=== PATIENT | female | born 1955 | race Caucasian/White ===

== ENCOUNTER 2023-08-27 10:53 | Inpatient (IN) | payer MEDICARE, BC ==
[~2023-08-27] VITALS: Ht 165.1 cm; Wt 40.1 kg
[2023-08-27] VITALS (346 sets, daily range): BP systolic 128–160; BP diastolic 66–106; PULSE 82–187; TEMP 97.4–102.7; O2SAT 85–100
[~2023-08-27 10:53] MED LIST: ALTACE 1.25MG1.25 MG; DRAMAMINE LESS25 MG PO; RIOMET500 MG/5 M; TOPROL XL 25MG25 MG PO; TRICOR145 MG PO; ZOFRAN ODT4 MG PO
[2023-08-27 12:28] LABS: MEAN CELL VOLUME 89 fl (80.0-100.0); MEAN CORPUSCULAR HGB CONC 31 g/dl (33.0-37.0); MEAN PLATELET VOLUME 9.4 fl (7.4-10.4); PLATELET COUNT 148 K/mm3 (130-400); RED BLOOD COUNT 3.38 M/mm3 (4.10-5.30); REDCELL DISTRIBUTION WIDTH-CV 17.4 % (11.5-14.5)
[2023-08-27 12:31] LABS: HEMATOCRIT 29.9 % (37.0-47.0); HEMOGLOBIN 9.2 g/dl (12.5-16.0); MEAN CORPUSCULAR HEMOGLOBIN 27 pg (27-31)
[2023-08-27 12:43] LABS: ALANINE AMINOTRANSFERASE 15 U/L (0-55); ALBUMIN 2.1 gm/dL (3.4-4.8); ALKALINE PHOSPHATASE 95 U/L (40-150); ANION GAP 15 mmol/L (7-16); AST,SGOT 22 U/L (5-34); BILIRUBIN,TOTAL 0.7 mg/dL (0.2-1.2); BLOOD UREA NITROGEN 25 mg/dL (10-20); CALCIUM 8.8 mg/dL (8.4-10.2); CARBON DIOXIDE 19 mmol/L (23-31); CHLORIDE 97 mmol/L (98-107); CREATININE, serum 1.07 mg/dL (0.57-1.11); GLUCOSE 223 mg/dL (70-99); POTASSIUM 3.9 mmol/L (3.5-4.5); SODIUM 131 mmol/L (136-145); TOTAL PROTEIN 5.9 gm/dL (6.2-8.1)
[2023-08-27 12:46] LABS: LIPASE < 4 U/L (8-78)
[2023-08-27 12:53] LABS: INR 1.7 (0.8-3.0); PROTHROMBIN TIME 18.4 SECONDS (9.7-12.8)
[2023-08-27 13:10] LABS: ANISOCYTOSIS 1+; BAND 43 % (0-10); LYMPHOCYTE 17 % (20.0-51.0); NEUTROPHILS 33 % (42.0-75.2); PLATELET ESTIMATE NORMAL (NORMAL)
[2023-08-27] MEDS ORDERED: CALCIUM CITRAT950 MG PO (15:09)
[2023-08-27] MEDS ORDERED: ZYRTEC 10MG10 MG PO (15:10)
[2023-08-27] MEDS ORDERED: GLUCOPHAGE500 MG/TAB PO (15:11)
[2023-08-27] MEDS ORDERED: TAGAMET300 MG PO (15:11)
[2023-08-27] MEDS ORDERED: ALTACE 5MG5 MG PO (15:14)
[2023-08-27] MEDS ORDERED: LOFIBRA134 MG PO (15:14)
[2023-08-27] MEDS ORDERED: PRAVACHOL 20MG20 MG PO (15:15)
[2023-08-27] MEDS ORDERED: DASETTA PO (15:15)
[2023-08-27] MEDS ORDERED: MAG-OX 400400 MG/TAB PO (15:16)
[2023-08-27] MEDS ORDERED: PERCOCET 325 MG1 TAB PO (15:16)
[2023-08-27] MEDS ORDERED: REGLAN 10MG10 MG/TAB PO (15:16)
[2023-08-27] MEDS ORDERED: ZOFRAN ODT8 MG PO (15:18)
[2023-08-27] MEDS ORDERED: FENTANYL 50MCG TD (15:20)
[2023-08-27] MEDS ORDERED: INSULIN AS100 UNIT/3 SQ (15:21)
[2023-08-27] MEDS ORDERED: GEMCITABINE IV (15:23)
[2023-08-27] MEDS ORDERED: ABRAXANE100 MG IV (15:25)
[2023-08-27 17:29] LABS: HEMOGLOBIN 10.4 g/dl (12.5-16.0); MEAN CELL VOLUME 88 fl (80.0-100.0); MEAN CORPUSCULAR HEMOGLOBIN 27 pg (27-31); MEAN CORPUSCULAR HGB CONC 31 g/dl (33.0-37.0); MEAN PLATELET VOLUME 10.2 fl (7.4-10.4); PLATELET COUNT 154 K/mm3 (130-400); RED BLOOD COUNT 3.83 M/mm3 (4.10-5.30); REDCELL DISTRIBUTION WIDTH-CV 17.6 % (11.5-14.5)
[2023-08-27 17:33] LABS: HEMATOCRIT 33.6 % (37.0-47.0)
[2023-08-27 17:38] LABS: PARTIAL THROMBOPLASTIN TIME 34.5 SECONDS (26.0-37.0)
--- NOTE | 2023-08-27 17:50 | NUR ---
PT ARRIVED TO ICU RM 1 AT 1750; WAS TRANSFERED FROM MEDICAL FLOOR TO [facility] BY THIS NURSE AFTER RESPONDING TO CAT CALL FOR PT'S HEART RATE BEING IN THE 180'S. UPON ARRIVAL TO ICU PT'S HEART RATE REMAINED IN 180'S; AFIB RVR. SPO2 IN MID 80'S DESPITE BEING ON 15L OXYMASK. RT MET PT IN ROOM AND PLACED PT ON AIRVO SHORTLY AFTER ARRIVAL. SP02 IMPROVED TO MID 90'S WITH AIRVO 60L AND 65%. PT'S BP 160'S/90'S. TEMP 102.7. PT LETHARGIC AND UNABLE TO STAY AWAKE TO ANSWER QUESTIONS. DR. LORENZO NOTIFIED OF PT'S CHANGE IN CONDITION AT 1738;ORDER WAS RECEIVED TO TRANSFER TO ICU. DR. ENCARNACION CALLED AT 1810 AND NOTIFED THAT CARDIZEM GTT AT 5MG/HR WAS NOT EFFECTIVE FOR HEART RATE. NEW ORDERS RECEIVED TO INCREASE CARDIZEM TO 15MG/HR, AMIO BOLUS, AND AMIO GTT. ILA CARMONA ARRIVED TO ASSESS PT AT 1800. PT'S PRESENT AT TIME OF TRANSFER TO ICU AND WAS UPDATED BY ILA CARMONA.
--- NOTE | 2023-08-27 18:15 | NUR ---
DOUBLER OPERATOR WAS SETTLING PATIENT TO ROOM UPON ADMISSION, TRYING TO DO PHYSICAL PT ASSESSMENT AND INITIATE HEPARIN AND CARDIZEM DRIPS. TELE CALLED CHARGE NURSE ROBERT WHO WAS IN THE ROOM TRYING TO GET A PERIPHERAL IV FOR DOUBLER OPERATOR; DOUBLER OPERATOR ANSWERED PHONE AND TELE SAID THAT PT HR WAS IN 180'S. DOUBLER OPERATOR TOLD TELE THAT PT JUST ARRIVED AND DOUBLER OPERATOR WAS WORKING ON SETTING UP DRIPS. ICU NURSES CAME UP A FEW MINUTES LATER DUE TO SUSTAINED HR IN 180'S TO ASSIST. DR. LORENZO CALLED BY CATERING OPERATIONS MANAGER AND PT MOVED TO ICU. DOUBLER OPERATOR GAVE REPORT TO ICU NURSE. DOUBLER OPERATOR WAS UNABLE TO COMPLETE PT PHYSICAL ASSESSMENT DUE TO PT DECLINE AT THE TIME
[2023-08-27 18:52] LABS: ARTERIAL BLD GAS TCO2 CT 19.2; ARTERIAL BLOOD GAS BASE EXCESS -5.9 (-2-2); ARTERIAL BLOOD GAS HCO3 18.3 meq/L (22-26); ARTERIAL BLOOD GAS PCO2 30.8 mmHg (35-45); ARTERIAL BLOOD GAS PO2 91.2 mmHg (80-100); ARTERIAL BLOOD GAS pH 7.39 (7.35-7.45)
[2023-08-27 19:07] LABS: MEAN CELL VOLUME 88 fl (80.0-100.0); MEAN CORPUSCULAR HGB CONC 31 g/dl (33.0-37.0); MEAN PLATELET VOLUME 9.4 fl (7.4-10.4); PLATELET COUNT 122 K/mm3 (130-400); RED BLOOD COUNT 3.15 M/mm3 (4.10-5.30); REDCELL DISTRIBUTION WIDTH-CV 17.5 % (11.5-14.5)
[2023-08-27 19:15] LABS: HEMATOCRIT 27.7 % (37.0-47.0); HEMOGLOBIN 8.7 g/dl (12.5-16.0); MEAN CORPUSCULAR HEMOGLOBIN 28 pg (27-31)
[2023-08-27 19:31] LABS: ALBUMIN 1.8 gm/dL (3.4-4.8); BILIRUBIN,TOTAL 0.7 mg/dL (0.2-1.2); CALCIUM 7.7 mg/dL (8.4-10.2); CREATININE, serum 0.72 mg/dL (0.57-1.11); POTASSIUM 3.7 mmol/L (3.5-4.5); TOTAL PROTEIN 5.1 gm/dL (6.2-8.1)
[2023-08-27 20:06] LABS: ANISOCYTOSIS 1+; BAND 32 % (0-10); LYMPHOCYTE 12 % (20.0-51.0); METAMYELOCYTE 8 % (0-0); NEUTROPHILS 44 % (42.0-75.2); NUCLEATED RED BLOOD CELL 2 (0-6); PLATELET ESTIMATE NORMAL (NORMAL)
[2023-08-27 20:07] LABS: HYPOCHROMIA 2+
[2023-08-27 22:14] LABS: COLLECTION METHOD CLEAN CATCH
[2023-08-27 22:29] LABS: PH 5.5 (5.0-8.5); URINE APPEARANCE Hazy (CLEAR/HAZY); URINE BLOOD 1+ (NEGATIVE); URINE COLOR Yellow (YELLOW); URINE GLUCOSE Negative (NEGATIVE); URINE KETONE Negative (NEGATIVE); URINE NITRATE Negative (NEGATIVE); URINE PROTEIN(semi-quant) 2+ (NEGATIVE); URINE UROBILINOGEN 0.2 E.U/dL (0.2-1.0)
[2023-08-27 22:30] LABS: MUCOUS Present (NOT PRESENT); SQUAMOUS EPITHELIAL 0-2 /hpf (0-10); URINE BACTERIA Rare /hpf (NONE SEEN); URINE RBC 0-2 /hpf (0-2)
[2023-08-28] VITALS (859 sets, daily range): BP systolic 115–118; BP diastolic 65–85; PULSE 75–81; O2SAT 29–100
--- NOTE | 2023-08-28 02:45 | NUR ---
CALLED MD , PATIENT IS SHORT OF AIR LABORED, ADVENTIOUS SOUNDS RONCHI RUBS INSPIRATIROY AND EXPIRATORY WHEESES/ MD ORDERS BREATHING TX IN WHICH CALMS PATIENT
[2023-08-28 05:10] LABS: MEAN CELL VOLUME 84 fl (80.0-100.0); MEAN CORPUSCULAR HGB CONC 33 g/dl (33.0-37.0); MEAN PLATELET VOLUME 10.5 fl (7.4-10.4); PLATELET COUNT 136 K/mm3 (130-400); RED BLOOD COUNT 3.23 M/mm3 (4.10-5.30); REDCELL DISTRIBUTION WIDTH-CV 17.1 % (11.5-14.5)
[2023-08-28 05:15] LABS: HEMATOCRIT 27.1 % (37.0-47.0); HEMOGLOBIN 8.9 g/dl (12.5-16.0); MEAN CORPUSCULAR HEMOGLOBIN 28 pg (27-31)
[2023-08-28 05:31] LABS: ALBUMIN 1.9 gm/dL (3.4-4.8); CALCIUM 7.9 mg/dL (8.4-10.2); CREATININE, serum 0.64 mg/dL (0.57-1.11); MAGNESIUM 1.8 mg/dL (1.6-2.6); PHOSPHOROUS 1.9 mg/dL (2.3-4.7); POTASSIUM 4.2 mmol/L (3.5-4.5)
[2023-08-28 06:05] LABS: ANISOCYTOSIS 1+; BAND 31 % (0-10); BURR CELLS 1+; LYMPHOCYTE 8 % (20.0-51.0); NEUTROPHILS 48 % (42.0-75.2); NUCLEATED RED BLOOD CELL 1 (0-6); TARGET CELLS 1+
[2023-08-28 06:06] LABS: PLATELET ESTIMATE NORMAL (NORMAL)
--- NOTE | 2023-08-28 06:31 | NUR ---
HEP X WAS 0 AT MIDNIGHT AND REDRAWN AT 0600 STIL 0 FINALLY BOLUS WITH 1000 UNITS AND IV HEPARIN HAS BEEN GIVEN AT 700 UNITS AN HR SINCE 1700 08/27/23
--- NOTE | 2023-08-28 06:32 | NUR ---
PT STATES HAS A NONPRODUCTIVE COUGH.
[2023-08-28 06:38] LABS: ARTERIAL BLD GAS O2 SATURATION 93.5 % (92-100); ARTERIAL BLD GAS TCO2 CT 18.2; ARTERIAL BLOOD GAS BASE EXCESS -7.4 (-2-2); ARTERIAL BLOOD GAS HCO3 17.2 meq/L (22-26); ARTERIAL BLOOD GAS PCO2 31.3 mmHg (35-45); ARTERIAL BLOOD GAS PO2 73.9 mmHg (80-100); ARTERIAL BLOOD GAS pH 7.36 (7.35-7.45)
--- NOTE | 2023-08-28 08:41 | NUR ---
PT WITH INTERMITTENT CONFUSION, UNABLE TO CONSENT FOR PICC PLACEMENT AT THIS TIME. CALL TO JAIME FOR VERBAL CONSENT. THIS NURSE AND [facility] NURSE EMANI FOR [facility]RA NURSE VERBAL CONSENT SIGNED FORM.
--- NOTE | 2023-08-28 13:00 | NUR ---
Patient's family arrives at this time. Patient's & 3/4 sons in waiting room for family meeting with this RN & Dr. Heydi Reddy. Dr. Reddy discussed patient's current status coupled with chronic health issues. Increased oxygen demands throughout the day with increased confusion at times. Discussed escalation of care vs. comfort care. Ventilator discussed & the terminal carman care options should the patient not be able to come of the ventilator. Family informed of Dr. Garrett Reddy's discussion with Oncologist Dr. Franco earlier today. Family expressed understanding & made the decision to proceed with comfort care. Discussed more what comfort care would entail for the patient. Discussed isolation precautions due to positive COVID test. Family agrees with plan for comfort care. Discussed visitation with comfort care. All questions answered.
--- NOTE | 2023-08-28 15:01 | NUR ---
1400 FAMILY CALLED NURSE INTO ROOM. PT REMOVED AIRVO AND STATED SHE DID NOT WANT TO WEAR IT ANYMORE. FAMILY DECIDED AT THIS TIME TO MAKE PT COMFORT CARE. 1405 DR. SANTO CALLED TO UPDATE PTS CODE STATUS AND FOR COMFORT MEDICATION ORDERS TO BE PLACED. 1415 ALL DRIPS DC'D AT THIS TIME. COMFORT MEDICATIONS ADMINISTERED.
--- NOTE | 2023-08-28 16:24 | NUR ---
1610 2 NURSE VERIFICATION TIME OF 161. EMERGENCY SPECIALIST NOTIFIED. DR. SANTO NOTIFIED WELL.
--- NOTE | 2023-08-28 16:30 | NUR ---
[facility] notified of patient , referral number [id number], patient not a candidate, we may release body to home when family is ready. Family has chosen [facility] in [place].
--- NOTE | 2023-08-28 16:50 | NUR ---
Attemped to call Patients PCP, Dr. Evans, message left with call back notification.
--- NOTE | 2023-08-28 17:07 | NUR ---
[facility] in [place] was notified ([phone]) for pickup.
--- NOTE | 2023-08-28 18:29 | NUR ---
1730 POSTMORTUM CARE PROVIDED. ODONNELL, PICC LINE AND RICHY BRADFORD DC'Issa. 1809 HOME HERE TO TAKE BODY. 1819 BODY LEFT WITH HOME. TOOK ALL BELONGINGS WITH HIM.
== END 2023-08-28 18:20 | disposition expired | DRG 871 ==
LOC: COL.ER 10:53 → MEDICAL 14:54 → ICU 17:39
PROVIDERS: Family Medicine; Internal Medicine; Internal Medicine Pulmonary Disease; Physician Assistant; ADMIT Internal Medicine
PROC: 5A0935A Assistance with Respiratory Ventilation, Less than 24 Consecutive Hours, High Flow/Velocity Cannula (ICD-10-PCS; 2023-08-27)
PROC: 02HV33Z Insertion of Infusion Device into Superior Vena Cava, Percutaneous Approach (ICD-10-PCS; principal; 2023-08-28)
DX: A41.89 Other specified sepsis (principal); E43 Unspecified severe protein-calorie malnutrition; J12.82 Pneumonia due to coronavirus disease 2019; U07.1 COVID-19; J96.01 Acute respiratory failure with hypoxia; C25.9 Malignant neoplasm of pancreas, unspecified; Z68.1 Body mass index [BMI] 19.9 or less, adult; Z66 Do not resuscitate; Z51.5 Encounter for palliative care; E87.20 Acidosis, unspecified; D84.9 Immunodeficiency, unspecified; D61.818 Other pancytopenia; K52.1 Toxic gastroenteritis and colitis; A09 Infectious gastroenteritis and colitis, unspecified; I48.91 Unspecified atrial fibrillation; E78.5 Hyperlipidemia, unspecified; D70.9 Neutropenia, unspecified; E83.39 Other disorders of phosphorus metabolism; T45.1X5A Adverse effect of antineoplastic and immunosuppressive drugs, initial encounter; I10 Essential (primary) hypertension; E11.9 Type 2 diabetes mellitus without complications; Z90.49 Acquired absence of other specified parts of digestive tract; Z79.4 Long term (current) use of insulin; Z79.899 Other long term (current) drug therapy; Z79.82 Long term (current) use of aspirin; Z87.891 Personal history of nicotine dependence
CPT/HCPCS: C1751; J0248; J0282; J0456; J0692; J1100; J1644; J1815; J1836; J2060; J2185; J2270; J2405; J3370; J3475; J3480; J7030; J7050; J7060; Q9967